=== PATIENT | male | born 1960 | race Caucasian/White ===

== ENCOUNTER → 2018-05-27 | Emergency (ER) | payer MEDICAID, OTHER | END | disposition left against medical advice (07) | LOC: ER 20:08 | DX: T14.8XXA Other injury of unspecified body region, initial encounter (principal); Z53.21 Procedure and treatment not carried out due to patient leaving prior to being seen by health care provider ==

== ENCOUNTER 2018-06-27 08:35 | Inpatient (IN) | payer OTHER ==
[~2018-06-27] VITALS: Ht 177.8 cm; Wt 118.3 kg
[2018-06-27] MEDS ORDERED: VANCOMYCIN 1GM/250ML 250 ML IV ONE (09:15)
[2018-06-27 09:39] LABS: Basophils # (auto) 0.1 uL; Basophils % (auto) 0.6 % (0.0-2.0); Eosinophils # (auto) 0.2 uL; Hematocrit 39.6 % (41.0-53.0); Hemoglobin 12.8 g/dL (13.5-17.5); Lymphocytes # (auto) 0.9 uL; Lymphocytes % (auto) 7.6 % (10.0-50.0); Mean Corpuscular Hemoglobin 27.8 pg (28.0-32.0); Mean Corpuscular Hgb Conc. 32.4 g/dL (32.0-36.0); Mean Corpuscular Volume 85.9 fL (80.0-100.0); Monocytes # (auto) 0.9 uL; Monocytes % (auto) 8.1 % (0.0-12.0); Neutrophils # (auto) 9.5 uL; Neutrophils % (auto) 81.7 % (37.0-80.0); Nucleated Red Blood Cells % 0.2 %; Platelet Count (auto) 380 10^3/uL (140-450); Red Blood Cells 4.61 10^6/uL (4.5-5.90); White Blood Cell 11.7 10^3/uL (4.4-10.8)
[2018-06-27 09:58] LABS: Alanine Aminotransferase 42 U/L (16-61); Albumin 2.4 g/dL (3.4-5.0); Anion Gap 9 (5-15); Aspartate Aminotransferase 37 U/L (15-37); BUN/Creatinine Ratio 18.8; Blood Urea Nitrogen 18 mg/dL (7-18); Calcium 8.3 mg/dL (8.5-10.1); Carbon Dioxide 26 mmol/L (21-32); Chloride 102 mmol/L (98-107); GFR African American 104 mL/min; GFR Non-African American 86 mL/min; Glucose 356 mg/dL (74-106); Magnesium 2.1 mg/dL (1.6-2.6); Potassium 4.8 mmol/L (3.5-5.1); Sodium 137 mmol/L (136-145)
[2018-06-27 10:03] LABS: Alkaline Phosphatase 195 U/L (45-117); Bilirubin, Total 0.2 mg/dL (0.2-1.0); Total Protein 7.5 g/dL (6.4-8.2)
[2018-06-27 10:23] LABS: INR 0.92 (0.9-1.15); Partial Thromboplastin Time 27.5 sec (23.78-33.04); Prothrombin Time 9.9 sec (9.27-12.13)
[2018-06-27] MEDS ORDERED: INSUINJ18 SC (12:35)
[2018-06-27] MEDS ORDERED: GABA300C10 PO (12:35)
[2018-06-27] MEDS ORDERED: INSU1INJ19 SC (12:35)
[2018-06-27] MEDS ORDERED: METF-372 PO (12:35)
[2018-06-27] MEDS ORDERED: LISI-646 PO (12:35)
[2018-06-27] MEDS ORDERED: AML5T PO (12:35)
[2018-06-27] MEDS ORDERED: MORPHINE SULFATE 4 MG/ML SYR/VIAL IV PRN ×2 (13:45→20:15)
[2018-06-27] MEDS ORDERED: NITROGLYCERIN 0.4 MG SL TAB SL PRN (13:45)
[2018-06-27] MEDS ORDERED: LACTULOSE 20Gm/30ML SOLN PO PRN (13:45)
[2018-06-27] MEDS ORDERED: TEMAZEPAM 15 MG CAP PO PRN (13:45)
[2018-06-27] MEDS ORDERED: DEXTROSE (50%) 50ML SYRG IV PRN (13:45)
[2018-06-27] MEDS ORDERED: FUROSEMIDE 40 MG/4 ML VIAL IV SCH (13:45)
[2018-06-27] MEDS ORDERED: ONDANSETRON HCL 4 MG/2 ML VIAL IV PRN (13:45)
[2018-06-27] MEDS ORDERED: ASPirin 81 mg TAB PO ONE (14:00)
[2018-06-27] MEDS ORDERED: CLINDAMYCIN 600MG IV 50 ML IV SCH (14:00)
[2018-06-27] MEDS ORDERED: amLODIPine BESYLATE 5 MG TAB PO ONE (14:00)
[2018-06-27] MEDS ORDERED: LISINOPRIL 10 MG TAB PO ONE (14:00)
[2018-06-27] MEDS: CARVEDILOL 3.125 MG TAB PO SCH ×2 (14:34→21:54)
[2018-06-27] MEDS: NITROGLYCERIN 0.2MG/HR TOPICAL PATCH TD SCH (14:35)
[2018-06-27] MEDS: cefTRIAXone 1GM/10ml IVPUSH 10 ML IV SCH (14:36)
[2018-06-27] MEDS: SODIUM CHLOR 0.9% PF (SALINE LOCK) 10ML VIAL/SYR IV SCH ×2 (14:36→21:54)
[2018-06-27] MEDS ORDERED: VANCOMYCIN PER PHARMACY 0 MG IV SCH (15:00)
[2018-06-27] MEDS ORDERED: AZITHROMYCIN 500MG/ 250ML 250 ML IV ONE (15:00)
[2018-06-27] MEDS ORDERED: IOHEXOL 350 MG/ML 100ML IJ ONE (15:35)
[2018-06-27 17:00] VITALS: BP 165/129
[2018-06-27] MEDS: SODIUM CHLORIDE 0.9% 1,000 ML IV SCH (17:19)
[2018-06-27] MEDS: ACCU-CHEK COMFORT CURVE STRIP VI SCH ×2 (17:59→19:55)
[2018-06-27] MEDS: InsuLIN REG 1unit/0.01ml Soln (100units/ml) SC SCH ×2 (18:00→20:08)
[2018-06-27] MEDS: VANCOMYCIN 1GM/250ML 250 ML IV SCH (18:00)
[2018-06-27] MEDS: KETOROLAC TROMETH 30 MG/ML 1ML VIAL IV PRN (20:08)
[2018-06-27] MEDS: INSULIN LANTUS (GLARGINE) 1 /0.01ml (100units/ml) SC SCH (21:54)
[2018-06-27 22:00] VITALS: BP 143/95
[2018-06-27] MEDS ORDERED: lamoTRIgine 100 MG TAB PO SCH (22:00)
[2018-06-27 23:05] VITALS: BP 143/95
[2018-06-28] MEDS: ACCU-CHEK COMFORT CURVE STRIP VI SCH ×6 (00:05→20:53)
[2018-06-28] MEDS: VANCOMYCIN 1GM/250ML 250 ML IV SCH ×3 (01:57→17:43)
[2018-06-28] MEDS: InsuLIN REG 1unit/0.01ml Soln (100units/ml) SC SCH ×6 (04:00→20:53)
[2018-06-28] MEDS: SODIUM CHLORIDE 0.9% 1,000 ML IV SCH ×2 (04:50→20:52)
[2018-06-28 05:00] VITALS: BP 141/77
[2018-06-28] MEDS: SODIUM CHLOR 0.9% PF (SALINE LOCK) 10ML VIAL/SYR IV SCH ×3 (05:43→20:52)
[2018-06-28] MEDS: INSULIN LANTUS (GLARGINE) 1 /0.01ml (100units/ml) SC SCH ×2 (05:55→20:53)
[2018-06-28] MEDS: GABAPENTIN 300 MG CAP PO SCH (05:59)
[2018-06-28 07:41] LABS: Basophils # (auto) 0 uL; Basophils % (auto) 0.5 % (0.0-2.0); Eosinophils # (auto) 0.3 uL; Eosinophils % (auto) 2.8 % (0.0-7.0); Hematocrit 35.3 % (41.0-53.0); Hemoglobin 11.5 g/dL (13.5-17.5); Lymphocytes # (auto) 0.9 uL; Lymphocytes % (auto) 9.5 % (10.0-50.0); Mean Corpuscular Hemoglobin 28.1 pg (28.0-32.0); Mean Corpuscular Hgb Conc. 32.7 g/dL (32.0-36.0); Mean Corpuscular Volume 85.9 fL (80.0-100.0); Monocytes # (auto) 0.9 uL; Monocytes % (auto) 9.2 % (0.0-12.0); Neutrophils # (auto) 7.3 uL; Nucleated Red Blood Cells % 0.1 %; Platelet Count (auto) 324 10^3/uL (140-450); Red Blood Cells 4.11 10^6/uL (4.5-5.90); Red Cell Distribution Width 13.4 % (11.8-14.3); White Blood Cell 9.3 10^3/uL (4.4-10.8)
[2018-06-28 08:13] LABS: BUN/Creatinine Ratio 24.7
[2018-06-28 08:30] VITALS: BP 150/91
[2018-06-28 08:44] LABS: Urine Bacteria NONE SEEN /hpf (None Seen); Urine Blood Negative /uL (Negative); Urine Budding Yeast OCCASIONAL /hpf (None Seen); Urine Specific Gravity 1.035 (1.001-1.035); Urine WBC 5 /hpf (0 - 3)
[2018-06-28 08:54] LABS: Alcohol, Urine < 3.0 mg/dL (0-5); Amphetamine Screen, Urine POSITIVE (NEGATIVE); Barbiturate Scree,Urine NEGATIVE (NEGATIVE); Benzodiazephine Screen, Urine NEGATIVE (NEGATIVE); Cannabinoid Screen, Urine NEGATIVE (NEGATIVE); Cocaine Screen, Urine NEGATIVE (NEGATIVE); Opiate Scree,Urine NEGATIVE (NEGATIVE); Phencyclidine Screen, Urine NEGATIVE (NEGATIVE)
[2018-06-28 09:00] VITALS: BP 150/92
[2018-06-28] MEDS: ENOXAPARIN SOD 40 MG/0.4 ML SYRINGE SC SCH (09:25)
[2018-06-28] MEDS: cefTRIAXone 1GM/10ml IVPUSH 10 ML IV SCH (09:25)
[2018-06-28] MEDS: ASPirin 81 mg TAB PO SCH (09:26)
[2018-06-28] MEDS: CARVEDILOL 3.125 MG TAB PO SCH ×2 (09:27→21:15)
[2018-06-28] MEDS: PANTOPRAZOLE 40 MG TAB PO SCH (09:27)
[2018-06-28] MEDS: NITROGLYCERIN 0.2MG/HR TOPICAL PATCH TD SCH (09:28)
[2018-06-28] MEDS ORDERED: amLODIPine BESYLATE 5 MG TAB PO SCH (10:00)
[2018-06-28] MEDS ORDERED: PATIENTS OWN MEDICATION (Lisinopril 1 TAB) PO SCH (10:00)
[2018-06-28] MEDS ORDERED: AZITHROMYCIN 500MG/ 250ML 250 ML IV SCH (10:00)
[2018-06-28] MEDS ORDERED: LISINOPRIL 10 MG TAB PO SCH (10:00)
[2018-06-28] MEDS ORDERED: POTASSIUM CHL 20 Meq TABLET PO SCH (10:00)
[2018-06-28] MEDS ORDERED: GABAPENTIN PO SCH (10:00)
[2018-06-28] MEDS ORDERED: LISINOPRIL 20 MG TAB PO ONE (12:15)
[2018-06-28 13:00] VITALS: BP 156/105
[2018-06-28] MEDS ORDERED: amLODIPine BESYLATE 5 MG TAB PO STA (13:31)
[2018-06-28] MEDS ORDERED: IOHEXOL 350 MG/ML 100ML IJ ONE (13:49)
[2018-06-28] MEDS ORDERED: DEXTROSE (50%) 50ML SYRG IV PRN (14:00)
[2018-06-28] MEDS: LORazepam 0.5 MG TAB PO PRN ×2 (14:33→20:30)
[2018-06-28 17:00] VITALS: BP 148/81
[2018-06-28] MEDS: ALBUTEROL SULF 2.5 MG/0.5ML(0.5%) NEB SOLN NEB PRN (19:22)
[2018-06-28 22:00] VITALS: BP 147/77
[2018-06-28] MEDS: KETOROLAC TROMETH 30 MG/ML 1ML VIAL IV PRN (22:30)
[2018-06-29] VITALS (7 sets, daily range): BP systolic 120–168; BP diastolic 78–96
[2018-06-29] MEDS: LORazepam 0.5 MG TAB PO PRN ×3 (02:30→17:53)
[2018-06-29] MEDS: VANCOMYCIN 1GM/250ML 250 ML IV SCH ×2 (02:37→10:10)
[2018-06-29] MEDS: SODIUM CHLOR 0.9% PF (SALINE LOCK) 10ML VIAL/SYR IV SCH ×3 (05:45→20:13)
[2018-06-29] MEDS: INSULIN LANTUS (GLARGINE) 1 /0.01ml (100units/ml) SC SCH ×2 (05:46→20:43)
[2018-06-29] MEDS: ACCU-CHEK COMFORT CURVE STRIP VI SCH ×4 (05:46→20:14)
[2018-06-29] MEDS: InsuLIN REG 1unit/0.01ml Soln (100units/ml) SC SCH ×4 (05:46→20:43)
[2018-06-29] MEDS: SODIUM CHLORIDE 0.9% 1,000 ML IV SCH ×2 (05:47→20:13)
[2018-06-29] MEDS: KETOROLAC TROMETH 30 MG/ML 1ML VIAL IV PRN ×2 (05:48→20:43)
[2018-06-29 06:05] LABS: Basophils # (auto) 0 uL; Basophils % (auto) 0.4 % (0.0-2.0); Eosinophils # (auto) 0.2 uL; Eosinophils % (auto) 3.5 % (0.0-7.0); Hematocrit 36.1 % (41.0-53.0); Lymphocytes # (auto) 0.8 uL; Lymphocytes % (auto) 11.7 % (10.0-50.0); Mean Corpuscular Hemoglobin 28.7 pg (28.0-32.0); Mean Corpuscular Hgb Conc. 33.3 g/dL (32.0-36.0); Mean Corpuscular Volume 86.2 fL (80.0-100.0); Monocytes # (auto) 0.6 uL; Neutrophils # (auto) 5.1 uL; Neutrophils % (auto) 75.4 % (37.0-80.0); Nucleated Red Blood Cells % 0.1 %; Platelet Count (auto) 345 10^3/uL (140-450); Red Blood Cells 4.18 10^6/uL (4.5-5.90); Red Cell Distribution Width 13.4 % (11.8-14.3); White Blood Cell 6.7 10^3/uL (4.4-10.8)
[2018-06-29 06:23] LABS: BUN/Creatinine Ratio 24.8; Calcium 8.2 mg/dL (8.5-10.1); Potassium 4.5 mmol/L (3.5-5.1)
[2018-06-29] MEDS: cefTRIAXone 1GM/10ml IVPUSH 10 ML IV SCH (10:09)
[2018-06-29] MEDS: NITROGLYCERIN 0.2MG/HR TOPICAL PATCH TD SCH (10:10)
[2018-06-29] MEDS: ENOXAPARIN SOD 40 MG/0.4 ML SYRINGE SC SCH (10:10)
[2018-06-29] MEDS: amLODIPine BESYLATE 5 MG TAB PO SCH (10:11)
[2018-06-29] MEDS: PANTOPRAZOLE 40 MG TAB PO SCH (10:11)
[2018-06-29] MEDS: GABAPENTIN 300 MG CAP PO SCH (10:12)
[2018-06-29] MEDS: CARVEDILOL 3.125 MG TAB PO SCH ×2 (10:12→20:13)
[2018-06-29] MEDS: ASPirin 81 mg TAB PO SCH (10:13)
[2018-06-29] MEDS: SILVER SULFADIAZINE 1 % TOPICAL CREAM 50GM TOP SCH ×2 (10:13→20:14)
[2018-06-29] MEDS: LISINOPRIL 20 MG TAB PO SCH (10:15)
[2018-06-29] MEDS: VANCOMYCIN 750 MG in D5W 5% 250 ML IV SCH (17:53)
[2018-06-29] MEDS: ALBUTEROL SULF 2.5 MG/0.5ML(0.5%) NEB SOLN NEB PRN (19:47)
[2018-06-29] MEDS: DAKINS QUARTER STR 0.125% (NaHypochlorite) 473 ML TOPICAL SOL TOP SCH ×2 (20:42→22:00)
[2018-06-29] MEDS ORDERED: HALOPERIDOL LACTATE 5 MG/ML INJ VIAL ONE (22:54)
[2018-06-29] MEDS ORDERED: LORazepam 2MG/ML-1ML VIAL ONE (22:55)
[2018-06-29] MEDS ORDERED: HALOPERIDOL LACTATE 5 MG/ML INJ VIAL IM ONE (23:00)
[2018-06-29] MEDS ORDERED: LORazepam 2MG/ML-1ML VIAL IV ONE (23:00)
[2018-06-29] MEDS ORDERED: diphenhdrAMINE HCL 50 MG/1 ML VL IM ONE (23:00)
[2018-06-30] VITALS (98 sets, daily range): BP systolic 66–205; BP diastolic 35–117
[2018-06-30] MEDS ORDERED: PROPOFOL 100 ML IV ONE (01:27)
[2018-06-30] MEDS ORDERED: MIDAZOLAM DRIP 50 mg/50mL 50 ML IV ONE (01:41)
[2018-06-30] MEDS ORDERED: NOREPINEPHRINE 8 MG/250ML KIT 250 ML IV ONE (02:13)
[2018-06-30] MEDS ORDERED: ETOMIDATE (2MG/ML) 20ML VIAL IV ONE (02:30)
[2018-06-30] MEDS ORDERED: SUCCINYLCHOLINE CHLORIDE 20 MG/ML 10ML VIAL IV ONE (03:00)
[2018-06-30] MEDS: NOREPINEPHRINE 8 MG/250ML KIT 250 ML IV SCH (03:00)
[2018-06-30] MEDS: VANCOMYCIN 750 MG in D5W 5% 250 ML IV SCH ×2 (03:02→09:29)
[2018-06-30 04:22] LABS: Basophils # (auto) 0 uL; Basophils % (auto) 0.4 % (0.0-2.0); Eosinophils # (auto) 0.2 uL; Eosinophils % (auto) 2.8 % (0.0-7.0); Hematocrit 34.8 % (41.0-53.0); Hemoglobin 11.4 g/dL (13.5-17.5); Lymphocytes # (auto) 0.4 uL; Lymphocytes % (auto) 6.3 % (10.0-50.0); Mean Corpuscular Hemoglobin 28.3 pg (28.0-32.0); Mean Corpuscular Hgb Conc. 32.7 g/dL (32.0-36.0); Mean Corpuscular Volume 86.7 fL (80.0-100.0); Monocytes # (auto) 0.5 uL; Monocytes % (auto) 7.1 % (0.0-12.0); Neutrophils # (auto) 5.9 uL; Neutrophils % (auto) 83.4 % (37.0-80.0); Nucleated Red Blood Cells % 0.1 %; Platelet Count (auto) 328 10^3/uL (140-450); Red Blood Cells 4.01 10^6/uL (4.5-5.90); Red Cell Distribution Width 13.8 % (11.8-14.3); White Blood Cell 7.1 10^3/uL (4.4-10.8)
[2018-06-30 04:33] LABS: BUN/Creatinine Ratio 24.4; Calcium 7.6 mg/dL (8.5-10.1); Potassium 4.7 mmol/L (3.5-5.1)
[2018-06-30] MEDS: SODIUM CHLOR 0.9% PF (SALINE LOCK) 10ML VIAL/SYR IV SCH ×3 (06:22→22:08)
[2018-06-30] MEDS: InsuLIN REG 1unit/0.01ml Soln (100units/ml) SC SCH ×4 (06:27→23:27)
[2018-06-30] MEDS: INSULIN LANTUS (GLARGINE) 1 /0.01ml (100units/ml) SC SCH ×2 (06:28→22:08)
[2018-06-30] MEDS: ACCU-CHEK COMFORT CURVE STRIP VI SCH ×3 (06:28→18:05)
[2018-06-30] MEDS: PROPOFOL 100 ML IV SCH ×2 (09:27→15:58)
[2018-06-30] MEDS: cefTRIAXone 1GM/10ml IVPUSH 10 ML IV SCH (09:28)
[2018-06-30] MEDS: amLODIPine BESYLATE 5 MG TAB PO SCH (10:00)
[2018-06-30] MEDS: LISINOPRIL 20 MG TAB PO SCH (10:00)
[2018-06-30] MEDS: CARVEDILOL 3.125 MG TAB PO SCH ×2 (10:00→22:00)
[2018-06-30] MEDS: NITROGLYCERIN 0.2MG/HR TOPICAL PATCH TD SCH (10:00)
[2018-06-30] MEDS: ASPirin 81 mg TAB PO SCH (10:24)
[2018-06-30] MEDS: GABAPENTIN 300 MG CAP PO SCH (10:26)
[2018-06-30] MEDS: ENOXAPARIN SOD 40 MG/0.4 ML SYRINGE SC SCH (10:27)
[2018-06-30] MEDS: PANTOPRAZOLE 40 MG TAB PO SCH (10:27)
[2018-06-30] MEDS: SODIUM CHLORIDE 0.9% 1,000 ML IV SCH ×2 (10:29→23:30)
[2018-06-30] MEDS ORDERED: DEXTROSE (50%) 50ML SYRG IV PRN (11:30)
[2018-06-30] MEDS ORDERED: PIPERACILLIN-TAZOB 3.375GM 100 ML IV SCH (12:00)
[2018-06-30] MEDS: DAKINS QUARTER STR 0.125% (NaHypochlorite) 473 ML TOPICAL SOL TOP SCH ×2 (14:35→22:00)
[2018-06-30] MEDS: SILVER SULFADIAZINE 1 % TOPICAL CREAM 50GM TOP SCH ×2 (14:36→22:00)
[2018-06-30] MEDS: CLINDAMYCIN 900MG IV 50 ML IV SCH ×2 (14:36→22:07)
[2018-06-30] MEDS: MIDAZOLAM DRIP 50 mg/50mL 50 ML IV SCH (21:47)
[2018-07-01] VITALS (107 sets, daily range): BP systolic 88–191; BP diastolic 39–105
[2018-07-01] MEDS: PROPOFOL 100 ML IV SCH ×6 (01:01→23:01)
[2018-07-01] MEDS: MIDAZOLAM DRIP 50 mg/50mL 50 ML IV SCH ×3 (01:01→23:01)
[2018-07-01] MEDS: NOREPINEPHRINE 8 MG/250ML KIT 250 ML IV SCH (02:04)
[2018-07-01] MEDS: ALBUTEROL SULF 2.5 MG/0.5ML(0.5%) NEB SOLN NEB PRN (02:51)
[2018-07-01 04:16] LABS: Basophils # (auto) 0 uL; Basophils % (auto) 0.3 % (0.0-2.0); Eosinophils # (auto) 0.2 uL; Eosinophils % (auto) 3.2 % (0.0-7.0); Hematocrit 37.2 % (41.0-53.0); Hemoglobin 12.2 g/dL (13.5-17.5); Lymphocytes # (auto) 0.8 uL; Lymphocytes % (auto) 11.6 % (10.0-50.0); Mean Corpuscular Hemoglobin 28.6 pg (28.0-32.0); Mean Corpuscular Hgb Conc. 32.9 g/dL (32.0-36.0); Mean Corpuscular Volume 87.2 fL (80.0-100.0); Monocytes # (auto) 0.7 uL; Monocytes % (auto) 9.9 % (0.0-12.0); Neutrophils # (auto) 5.4 uL; Nucleated Red Blood Cells % 0.1 %; Platelet Count (auto) 328 10^3/uL (140-450); Red Blood Cells 4.26 10^6/uL (4.5-5.90); White Blood Cell 7.2 10^3/uL (4.4-10.8)
[2018-07-01 04:30] LABS: BUN/Creatinine Ratio 27.2; Calcium 7.6 mg/dL (8.5-10.1); Potassium 4.3 mmol/L (3.5-5.1)
[2018-07-01] MEDS: CLINDAMYCIN 900MG IV 50 ML IV SCH ×3 (06:30→22:06)
[2018-07-01] MEDS: SODIUM CHLOR 0.9% PF (SALINE LOCK) 10ML VIAL/SYR IV SCH ×3 (06:31→22:24)
[2018-07-01] MEDS: InsuLIN REG 1unit/0.01ml Soln (100units/ml) SC SCH ×4 (06:31→23:48)
[2018-07-01] MEDS: INSULIN LANTUS (GLARGINE) 1 /0.01ml (100units/ml) SC SCH ×2 (06:31→22:00)
[2018-07-01] MEDS: ACCU-CHEK COMFORT CURVE STRIP VI SCH ×5 (06:31→23:48)
[2018-07-01] MEDS ORDERED: LEVETIRACETAM INJ 1,000 MG in D5W 5% 100 ML IV SCH (08:15)
[2018-07-01] MEDS: LISINOPRIL 20 MG TAB PO SCH (10:00)
[2018-07-01] MEDS: GABAPENTIN 300 MG CAP PO SCH (10:00)
[2018-07-01] MEDS: ASPirin 81 mg TAB PO SCH (10:16)
[2018-07-01] MEDS: CARVEDILOL 3.125 MG TAB PO SCH ×2 (10:17→22:00)
[2018-07-01] MEDS: PANTOPRAZOLE 40 MG TAB PO SCH (10:18)
[2018-07-01] MEDS: amLODIPine BESYLATE 5 MG TAB PO SCH (10:18)
[2018-07-01] MEDS: NITROGLYCERIN 0.2MG/HR TOPICAL PATCH TD SCH (10:19)
[2018-07-01] MEDS: ENOXAPARIN SOD 40 MG/0.4 ML SYRINGE SC SCH (10:19)
[2018-07-01] MEDS: DAKINS QUARTER STR 0.125% (NaHypochlorite) 473 ML TOPICAL SOL TOP SCH ×2 (12:42→22:23)
[2018-07-01] MEDS: SILVER SULFADIAZINE 1 % TOPICAL CREAM 50GM TOP SCH ×2 (12:42→22:23)
[2018-07-01] MEDS ORDERED: LORazepam 2MG/ML-1ML VIAL IV PRN (16:30)
[2018-07-01] MEDS ORDERED: Glucerna 1.2 Cal 1Liter BOTTLE GT SCH (19:30)
[2018-07-01] MEDS: SODIUM CHLORIDE 0.9% 1,000 ML IV SCH (22:57)
[2018-07-01] MEDS: LEVETIRACETAM INJ 1,000 MG in D5W 5% 100 ML IV SCH (23:01)
[2018-07-02] VITALS (104 sets, daily range): BP systolic 90–177; BP diastolic 45–104
[2018-07-02] MEDS: PROPOFOL 100 ML IV SCH ×4 (02:14→22:16)
[2018-07-02 04:04] LABS: Basophils # (auto) 0 uL; Basophils % (auto) 0.3 % (0.0-2.0); Eosinophils # (auto) 0.2 uL; Eosinophils % (auto) 2.8 % (0.0-7.0); Hematocrit 31.8 % (41.0-53.0); Hemoglobin 10.4 g/dL (13.5-17.5); Lymphocytes # (auto) 0.9 uL; Lymphocytes % (auto) 15.2 % (10.0-50.0); Mean Corpuscular Hemoglobin 28.6 pg (28.0-32.0); Mean Corpuscular Hgb Conc. 32.8 g/dL (32.0-36.0); Mean Corpuscular Volume 87.2 fL (80.0-100.0); Monocytes # (auto) 0.6 uL; Monocytes % (auto) 10.3 % (0.0-12.0); Neutrophils # (auto) 4.2 uL; Neutrophils % (auto) 71.4 % (37.0-80.0); Nucleated Red Blood Cells % 0.1 %; Platelet Count (auto) 305 10^3/uL (140-450); Red Blood Cells 3.65 10^6/uL (4.5-5.90); Red Cell Distribution Width 13.9 % (11.8-14.3); White Blood Cell 5.9 10^3/uL (4.4-10.8)
[2018-07-02 04:26] LABS: Calcium 7.4 mg/dL (8.5-10.1)
[2018-07-02] MEDS: InsuLIN REG 1unit/0.01ml Soln (100units/ml) SC SCH ×3 (06:00→18:08)
[2018-07-02] MEDS: SODIUM CHLOR 0.9% PF (SALINE LOCK) 10ML VIAL/SYR IV SCH ×4 (06:09→22:09)
[2018-07-02] MEDS: CLINDAMYCIN 900MG IV 50 ML IV SCH ×3 (06:09→22:18)
[2018-07-02] MEDS: ACCU-CHEK COMFORT CURVE STRIP VI SCH ×3 (06:09→18:08)
[2018-07-02] MEDS: INSULIN LANTUS (GLARGINE) 1 /0.01ml (100units/ml) SC SCH ×2 (06:10→22:00)
[2018-07-02] MEDS: SODIUM CHLORIDE 0.9% 1,000 ML IV SCH ×2 (06:10→15:03)
[2018-07-02] MEDS: MIDAZOLAM DRIP 50 mg/50mL 50 ML IV SCH ×3 (07:18→22:25)
[2018-07-02] MEDS: LEVETIRACETAM INJ 1,000 MG in D5W 5% 100 ML IV SCH (10:13)
[2018-07-02] MEDS: ASPirin 81 mg TAB PO SCH (10:23)
[2018-07-02] MEDS: GABAPENTIN 300 MG CAP PO SCH (10:25)
[2018-07-02] MEDS: CARVEDILOL 3.125 MG TAB PO SCH ×2 (10:25→22:00)
[2018-07-02] MEDS: amLODIPine BESYLATE 5 MG TAB PO SCH (10:26)
[2018-07-02] MEDS: PANTOPRAZOLE 40 MG TAB PO SCH (10:26)
[2018-07-02] MEDS: LISINOPRIL 20 MG TAB PO SCH (10:27)
[2018-07-02] MEDS: ENOXAPARIN SOD 40 MG/0.4 ML SYRINGE SC SCH (10:28)
[2018-07-02] MEDS: NITROGLYCERIN 0.2MG/HR TOPICAL PATCH TD SCH (10:28)
[2018-07-02 11:45] LABS: Prothrombin Time 10.7 sec (9.27-12.13)
[2018-07-02] MEDS: SILVER SULFADIAZINE 1 % TOPICAL CREAM 50GM TOP SCH ×2 (14:24→22:18)
[2018-07-02] MEDS: DAKINS QUARTER STR 0.125% (NaHypochlorite) 473 ML TOPICAL SOL TOP SCH ×2 (14:24→22:17)
[2018-07-02] MEDS ORDERED: LIDOCAINE 1% (LOCAL ANESTH.) PF 5ml SDV ID ONE (15:00)
[2018-07-02] MEDS ORDERED: LEVETIRACETAM INJ 1,000 MG in D5W 5% 100 ML IV ONE (16:30)
[2018-07-02] MEDS: LEVETIRACETAM INJ 750 MG in D5W 5% 100 ML IV SCH (22:27)
[2018-07-03] VITALS (106 sets, daily range): BP systolic 91–177; BP diastolic 47–120
[2018-07-03] MEDS: SODIUM CHLORIDE 0.9% 1,000 ML IV SCH ×2 (01:01→12:18)
[2018-07-03] MEDS: PROPOFOL 100 ML IV SCH ×5 (01:26→16:37)
[2018-07-03 04:10] LABS: Basophils # (auto) 0 uL; Basophils % (auto) 0.4 % (0.0-2.0); Eosinophils # (auto) 0.2 uL; Eosinophils % (auto) 3.3 % (0.0-7.0); Hematocrit 32.6 % (41.0-53.0); Hemoglobin 10.7 g/dL (13.5-17.5); Lymphocytes # (auto) 0.7 uL; Lymphocytes % (auto) 13.2 % (10.0-50.0); Mean Corpuscular Hemoglobin 28.6 pg (28.0-32.0); Mean Corpuscular Hgb Conc. 32.9 g/dL (32.0-36.0); Monocytes # (auto) 0.6 uL; Monocytes % (auto) 10.1 % (0.0-12.0); Neutrophils # (auto) 4.2 uL; Platelet Count (auto) 300 10^3/uL (140-450); Red Blood Cells 3.75 10^6/uL (4.5-5.90); Red Cell Distribution Width 14.3 % (11.8-14.3); White Blood Cell 5.7 10^3/uL (4.4-10.8)
[2018-07-03 04:35] LABS: Potassium 3.9 mmol/L (3.5-5.1)
[2018-07-03 04:39] LABS: Calcium 7.3 mg/dL (8.5-10.1)
[2018-07-03] MEDS: ACCU-CHEK COMFORT CURVE STRIP VI SCH ×4 (05:24→18:10)
[2018-07-03] MEDS: INSULIN LANTUS (GLARGINE) 1 /0.01ml (100units/ml) SC SCH ×2 (05:24→21:53)
[2018-07-03] MEDS: InsuLIN REG 1unit/0.01ml Soln (100units/ml) SC SCH ×4 (05:24→18:25)
[2018-07-03] MEDS: SODIUM CHLOR 0.9% PF (SALINE LOCK) 10ML VIAL/SYR IV SCH ×4 (05:24→21:52)
[2018-07-03] MEDS: CLINDAMYCIN 900MG IV 50 ML IV SCH ×3 (06:00→21:52)
[2018-07-03] MEDS: MIDAZOLAM DRIP 50 mg/50mL 50 ML IV SCH ×5 (06:39→20:14)
[2018-07-03] MEDS: LISINOPRIL 20 MG TAB PO SCH (10:07)
[2018-07-03] MEDS: ASPirin 81 mg TAB PO SCH (10:07)
[2018-07-03] MEDS: amLODIPine BESYLATE 5 MG TAB PO SCH (10:07)
[2018-07-03] MEDS: GABAPENTIN 300 MG CAP PO SCH (10:07)
[2018-07-03] MEDS: PANTOPRAZOLE 40 MG TAB PO SCH (10:08)
[2018-07-03] MEDS: ENOXAPARIN SOD 40 MG/0.4 ML SYRINGE SC SCH (10:08)
[2018-07-03] MEDS: CARVEDILOL 3.125 MG TAB PO SCH ×2 (10:08→21:53)
[2018-07-03] MEDS: NITROGLYCERIN 0.2MG/HR TOPICAL PATCH TD SCH (10:08)
[2018-07-03] MEDS: LEVETIRACETAM INJ 750 MG in D5W 5% 100 ML IV SCH ×2 (10:09→21:52)
[2018-07-03] MEDS: DAKINS QUARTER STR 0.125% (NaHypochlorite) 473 ML TOPICAL SOL TOP SCH (12:00)
[2018-07-03] MEDS: SILVER SULFADIAZINE 1 % TOPICAL CREAM 50GM TOP SCH (12:00)
[2018-07-03] MEDS: fentaNYL Drip 2500mCg/250mlNS 250 ML IV SCH (15:35)
[2018-07-03] MEDS: cefTRIAXone 1GM/10ml IVPUSH 10 ML IV SCH (16:31)
[2018-07-03] MEDS ORDERED: FUROSEMIDE 40 MG/4 ML VIAL IV STA (18:13)
[2018-07-03] MEDS: FUROSEMIDE 40 MG/4 ML VIAL IV SCH (19:00)
[2018-07-04] VITALS (104 sets, daily range): BP systolic 14–156; BP diastolic 47–104
[2018-07-04] MEDS: ACCU-CHEK COMFORT CURVE STRIP VI SCH ×5 (00:04→23:36)
[2018-07-04] MEDS: MIDAZOLAM DRIP 50 mg/50mL 50 ML IV SCH ×3 (00:10→10:58)
[2018-07-04] MEDS: InsuLIN REG 1unit/0.01ml Soln (100units/ml) SC SCH ×5 (00:10→23:36)
[2018-07-04] MEDS: SILVER SULFADIAZINE 1 % TOPICAL CREAM 50GM TOP SCH ×3 (00:10→21:31)
[2018-07-04] MEDS: DAKINS QUARTER STR 0.125% (NaHypochlorite) 473 ML TOPICAL SOL TOP SCH ×3 (00:11→21:30)
[2018-07-04 04:17] LABS: Basophils # (auto) 0 uL; Basophils % (auto) 0.5 % (0.0-2.0); Eosinophils # (auto) 0.2 uL; Hematocrit 33.4 % (41.0-53.0); Hemoglobin 10.9 g/dL (13.5-17.5); Lymphocytes # (auto) 0.7 uL; Lymphocytes % (auto) 8.5 % (10.0-50.0); Mean Corpuscular Hemoglobin 28.5 pg (28.0-32.0); Mean Corpuscular Hgb Conc. 32.7 g/dL (32.0-36.0); Mean Corpuscular Volume 87.1 fL (80.0-100.0); Monocytes # (auto) 0.7 uL; Monocytes % (auto) 8.5 % (0.0-12.0); Neutrophils # (auto) 6.6 uL; Neutrophils % (auto) 80.5 % (37.0-80.0); Platelet Count (auto) 362 10^3/uL (140-450); Red Blood Cells 3.84 10^6/uL (4.5-5.90); Red Cell Distribution Width 13.8 % (11.8-14.3); White Blood Cell 8.2 10^3/uL (4.4-10.8)
[2018-07-04 04:31] LABS: Calcium 7.7 mg/dL (8.5-10.1); Potassium 4.2 mmol/L (3.5-5.1)
[2018-07-04 04:32] LABS: BUN/Creatinine Ratio 21.9
[2018-07-04] MEDS: SODIUM CHLORIDE 0.9% 1,000 ML IV SCH ×2 (04:41→18:45)
[2018-07-04] MEDS: PROPOFOL 100 ML IV SCH ×2 (05:08→10:07)
[2018-07-04] MEDS: FUROSEMIDE 40 MG/4 ML VIAL IV SCH ×2 (05:55→18:14)
[2018-07-04] MEDS: CLINDAMYCIN 900MG IV 50 ML IV SCH ×3 (05:55→21:28)
[2018-07-04] MEDS: INSULIN LANTUS (GLARGINE) 1 /0.01ml (100units/ml) SC SCH ×2 (06:30→21:29)
[2018-07-04] MEDS: cefTRIAXone 1GM/10ml IVPUSH 10 ML IV SCH (09:33)
[2018-07-04] MEDS: LISINOPRIL 20 MG TAB PO SCH (09:42)
[2018-07-04] MEDS: CARVEDILOL 3.125 MG TAB PO SCH ×2 (09:47→21:28)
[2018-07-04] MEDS: ASPirin 81 mg TAB PO SCH (09:50)
[2018-07-04] MEDS: amLODIPine BESYLATE 5 MG TAB PO SCH (10:00)
[2018-07-04] MEDS: ENOXAPARIN SOD 40 MG/0.4 ML SYRINGE SC SCH (10:05)
[2018-07-04] MEDS: GABAPENTIN 300 MG CAP PO SCH (10:15)
[2018-07-04] MEDS: LEVETIRACETAM INJ 750 MG in D5W 5% 100 ML IV SCH ×2 (10:16→21:38)
[2018-07-04] MEDS: NITROGLYCERIN 0.2MG/HR TOPICAL PATCH TD SCH (10:16)
[2018-07-04] MEDS: SODIUM CHLOR 0.9% PF (SALINE LOCK) 10ML VIAL/SYR IV SCH ×2 (10:17→21:30)
[2018-07-04] MEDS: OMEPRAZOLE 20MG/10ML ORAL SUSP GT SCH (10:57)
[2018-07-04] MEDS ORDERED: FUROSEMIDE 20 MG/2 ML VIAL ONE (18:08)
[2018-07-04] MEDS: fentaNYL Drip 2500mCg/250mlNS 250 ML IV SCH (18:11)
[2018-07-05] VITALS (107 sets, daily range): BP systolic 96–168; BP diastolic 44–114
[2018-07-05 03:17] LABS: Basophils # (auto) 0 uL; Basophils % (auto) 0.6 % (0.0-2.0); Eosinophils # (auto) 0.2 uL; Hematocrit 32.9 % (41.0-53.0); Hemoglobin 10.6 g/dL (13.5-17.5); Lymphocytes % (auto) 12.5 % (10.0-50.0); Mean Corpuscular Hemoglobin 27.7 pg (28.0-32.0); Mean Corpuscular Hgb Conc. 32.3 g/dL (32.0-36.0); Mean Corpuscular Volume 85.8 fL (80.0-100.0); Monocytes # (auto) 0.9 uL; Monocytes % (auto) 11.2 % (0.0-12.0); Neutrophils # (auto) 5.8 uL; Neutrophils % (auto) 73.7 % (37.0-80.0); Platelet Count (auto) 369 10^3/uL (140-450); Red Blood Cells 3.83 10^6/uL (4.5-5.90); Red Cell Distribution Width 14.3 % (11.8-14.3); White Blood Cell 7.8 10^3/uL (4.4-10.8)
[2018-07-05 03:33] LABS: BUN/Creatinine Ratio 25.3; Calcium 7.7 mg/dL (8.5-10.1)
[2018-07-05] MEDS: INSULIN LANTUS (GLARGINE) 1 /0.01ml (100units/ml) SC SCH (05:40)
[2018-07-05] MEDS: ACCU-CHEK COMFORT CURVE STRIP VI SCH ×3 (05:40→17:56)
[2018-07-05] MEDS: FUROSEMIDE 40 MG/4 ML VIAL IV SCH ×2 (05:40→17:55)
[2018-07-05] MEDS: CLINDAMYCIN 900MG IV 50 ML IV SCH ×3 (05:40→21:55)
[2018-07-05] MEDS: InsuLIN REG 1unit/0.01ml Soln (100units/ml) SC SCH ×3 (05:41→17:56)
[2018-07-05] MEDS: DAKINS QUARTER STR 0.125% (NaHypochlorite) 473 ML TOPICAL SOL TOP SCH ×3 (08:00→17:55)
[2018-07-05] MEDS: PROPOFOL 100 ML IV SCH ×3 (08:00→16:00)
[2018-07-05] MEDS: ASPirin 81 mg TAB PO SCH (10:31)
[2018-07-05] MEDS: OMEPRAZOLE 20MG/10ML ORAL SUSP GT SCH (10:32)
[2018-07-05] MEDS: cefTRIAXone 1GM/10ml IVPUSH 10 ML IV SCH (10:32)
[2018-07-05] MEDS: SODIUM CHLOR 0.9% PF (SALINE LOCK) 10ML VIAL/SYR IV SCH ×2 (10:32→22:00)
[2018-07-05] MEDS: GABAPENTIN 300 MG CAP PO SCH (10:34)
[2018-07-05] MEDS: LEVETIRACETAM INJ 750 MG in D5W 5% 100 ML IV SCH ×2 (10:43→21:58)
[2018-07-05] MEDS: CARVEDILOL 3.125 MG TAB PO SCH ×2 (11:10→21:56)
[2018-07-05] MEDS: LISINOPRIL 20 MG TAB PO SCH (11:11)
[2018-07-05] MEDS: amLODIPine BESYLATE 5 MG TAB PO SCH (11:11)
[2018-07-05] MEDS: ENOXAPARIN SOD 40 MG/0.4 ML SYRINGE SC SCH (11:12)
[2018-07-05] MEDS: NITROGLYCERIN 0.2MG/HR TOPICAL PATCH TD SCH (11:13)
[2018-07-05] MEDS: HALOPERIDOL 5 MG TAB PO SCH ×2 (13:54→21:57)
[2018-07-05] MEDS: SILVER SULFADIAZINE 1 % TOPICAL CREAM 50GM TOP SCH ×2 (14:40→17:55)
[2018-07-05] MEDS: fentaNYL Drip 2500mCg/250mlNS 250 ML IV SCH (15:05)
[2018-07-05] MEDS: SODIUM CHLORIDE 0.9% 1,000 ML IV SCH (18:45)
[2018-07-06] VITALS (105 sets, daily range): BP systolic 82–169; BP diastolic 34–103
[2018-07-06] MEDS: InsuLIN REG 1unit/0.01ml Soln (100units/ml) SC SCH ×4 (00:30→18:36)
[2018-07-06] MEDS: hydrALAZINE HCL 20 MG/ML VL IV PRN (03:38)
[2018-07-06 04:13] LABS: Basophils # (auto) 0.1 uL; Basophils % (auto) 1.3 % (0.0-2.0); Eosinophils # (auto) 0.2 uL; Eosinophils % (auto) 2.6 % (0.0-7.0); Hematocrit 32.6 % (41.0-53.0); Hemoglobin 10.5 g/dL (13.5-17.5); Lymphocytes # (auto) 0.8 uL; Lymphocytes % (auto) 10.2 % (10.0-50.0); Mean Corpuscular Hemoglobin 28.1 pg (28.0-32.0); Mean Corpuscular Hgb Conc. 32.3 g/dL (32.0-36.0); Mean Corpuscular Volume 86.8 fL (80.0-100.0); Monocytes # (auto) 0.8 uL; Monocytes % (auto) 11.1 % (0.0-12.0); Neutrophils # (auto) 5.6 uL; Neutrophils % (auto) 74.8 % (37.0-80.0); Platelet Count (auto) 358 10^3/uL (140-450); Red Blood Cells 3.75 10^6/uL (4.5-5.90); White Blood Cell 7.4 10^3/uL (4.4-10.8)
[2018-07-06 04:31] LABS: Calcium 7.8 mg/dL (8.5-10.1)
[2018-07-06 04:33] LABS: BUN/Creatinine Ratio 34.9
[2018-07-06] MEDS: DAKINS QUARTER STR 0.125% (NaHypochlorite) 473 ML TOPICAL SOL TOP SCH ×3 (05:29→22:30)
[2018-07-06] MEDS: SILVER SULFADIAZINE 1 % TOPICAL CREAM 50GM TOP SCH ×3 (05:29→22:30)
[2018-07-06] MEDS: CLINDAMYCIN 900MG IV 50 ML IV SCH ×3 (06:29→22:20)
[2018-07-06] MEDS: FUROSEMIDE 40 MG/4 ML VIAL IV SCH ×2 (06:29→18:29)
[2018-07-06] MEDS: ACCU-CHEK COMFORT CURVE STRIP VI SCH ×4 (06:29→18:35)
[2018-07-06] MEDS: INSULIN LANTUS (GLARGINE) 1 /0.01ml (100units/ml) SC SCH ×2 (06:35→22:49)
[2018-07-06] MEDS: PROPOFOL 100 ML IV SCH ×5 (07:00→18:25)
[2018-07-06] MEDS: MIDAZOLAM DRIP 50 mg/50mL 50 ML IV SCH (07:24)
[2018-07-06] MEDS: cefTRIAXone 1GM/10ml IVPUSH 10 ML IV SCH (09:21)
[2018-07-06] MEDS ORDERED: SODIUM CHLORIDE LOCK 40 ML ONE (09:35)
[2018-07-06] MEDS ORDERED: LIDOCAINE 2% (LOCAL ANESTH.) PF 5ml SDV ONE (09:35)
[2018-07-06] MEDS ORDERED: EPINEPHrine HCL 1 MG/1 ML AMP ONE (09:35)
[2018-07-06] MEDS ORDERED: GLYCOPYRROLATE 0.2 MG/ML 1ML VIAL ONE (09:36)
[2018-07-06] MEDS ORDERED: MIDAZOLAM HCL 5 MG/ML-1ML VIAL ONE (09:36)
[2018-07-06] MEDS ORDERED: LIDOCAINE 2% JELLY 11ml (GLYDO) ONE (09:36)
[2018-07-06] MEDS ORDERED: fentaNYL CITRATE 100 MCG/2 ML VL ONE (09:36)
[2018-07-06] MEDS ORDERED: NALOXONE HCL 0.4 MG/ML VIAL ONE (09:37)
[2018-07-06] MEDS ORDERED: FLUMAZENIL 0.1 MG/ML INJ 10ML MDV IV ONE (09:37)
[2018-07-06] MEDS: LEVETIRACETAM INJ 750 MG in D5W 5% 100 ML IV SCH ×2 (09:39→22:20)
[2018-07-06] MEDS: FLUCONAZOLE 200MG/100ML 100 ML IV SCH (12:45)
[2018-07-06] MEDS: NITROGLYCERIN 0.2MG/HR TOPICAL PATCH TD SCH (12:46)
[2018-07-06] MEDS: amLODIPine BESYLATE 5 MG TAB PO SCH (12:48)
[2018-07-06] MEDS: CARVEDILOL 3.125 MG TAB PO SCH ×2 (12:49→22:00)
[2018-07-06] MEDS: GABAPENTIN 300 MG CAP PO SCH (12:49)
[2018-07-06] MEDS: ASPirin 81 mg TAB PO SCH (12:49)
[2018-07-06] MEDS: ENOXAPARIN SOD 40 MG/0.4 ML SYRINGE SC SCH (12:51)
[2018-07-06] MEDS: LISINOPRIL 20 MG TAB PO SCH (12:51)
[2018-07-06] MEDS: OMEPRAZOLE 20MG/10ML ORAL SUSP GT SCH (12:52)
[2018-07-06] MEDS: SODIUM CHLOR 0.9% PF (SALINE LOCK) 10ML VIAL/SYR IV SCH ×2 (12:55→22:24)
[2018-07-06] MEDS: HALOPERIDOL 5 MG TAB PO SCH ×2 (13:20→22:24)
[2018-07-06] MEDS: fentaNYL Drip 2500mCg/250mlNS 250 ML IV SCH (15:05)
[2018-07-06] MEDS: SODIUM CHLORIDE 0.9% 1,000 ML IV SCH (18:45)
[2018-07-07] VITALS (61 sets, daily range): BP systolic 102–175; BP diastolic 52–112
[2018-07-07] MEDS: ACCU-CHEK COMFORT CURVE STRIP VI SCH ×4 (00:15→18:00)
[2018-07-07 03:55] LABS: Basophils # (auto) 0.1 uL; Basophils % (auto) 1.1 % (0.0-2.0); Eosinophils # (auto) 0.3 uL; Eosinophils % (auto) 4.4 % (0.0-7.0); Hematocrit 30.2 % (41.0-53.0); Lymphocytes # (auto) 0.7 uL; Lymphocytes % (auto) 11.3 % (10.0-50.0); Mean Corpuscular Hemoglobin 31.3 pg (28.0-32.0); Mean Corpuscular Hgb Conc. 36.4 g/dL (32.0-36.0); Mean Corpuscular Volume 86.2 fL (80.0-100.0); Monocytes # (auto) 0.7 uL; Monocytes % (auto) 10.7 % (0.0-12.0); Neutrophils # (auto) 4.7 uL; Neutrophils % (auto) 72.5 % (37.0-80.0); Platelet Count (auto) 363 10^3/uL (140-450); White Blood Cell 6.4 10^3/uL (4.4-10.8)
[2018-07-07 04:13] LABS: BUN/Creatinine Ratio 32.3; Calcium 6.6 mg/dL (8.5-10.1); Potassium 3.7 mmol/L (3.5-5.1)
[2018-07-07] MEDS: FUROSEMIDE 40 MG/4 ML VIAL IV SCH ×2 (06:12→18:44)
[2018-07-07] MEDS: CLINDAMYCIN 900MG IV 50 ML IV SCH ×3 (06:12→22:30)
[2018-07-07] MEDS: INSULIN LANTUS (GLARGINE) 1 /0.01ml (100units/ml) SC SCH ×2 (06:17→22:00)
[2018-07-07] MEDS: InsuLIN REG 1unit/0.01ml Soln (100units/ml) SC SCH ×4 (06:17→18:00)
[2018-07-07] MEDS: MIDAZOLAM DRIP 50 mg/50mL 50 ML IV SCH (07:24)
[2018-07-07] MEDS: SODIUM CHLOR 0.9% PF (SALINE LOCK) 10ML VIAL/SYR IV SCH ×2 (10:00→22:00)
[2018-07-07] MEDS: SILVER SULFADIAZINE 1 % TOPICAL CREAM 50GM TOP SCH ×2 (10:00→22:00)
[2018-07-07] MEDS: DAKINS QUARTER STR 0.125% (NaHypochlorite) 473 ML TOPICAL SOL TOP SCH ×2 (10:00→22:00)
[2018-07-07] MEDS: cefTRIAXone 1GM/10ml IVPUSH 10 ML IV SCH (10:07)
[2018-07-07] MEDS: OMEPRAZOLE 20MG/10ML ORAL SUSP GT SCH (10:10)
[2018-07-07] MEDS: FLUCONAZOLE 200MG/100ML 100 ML IV SCH (10:10)
[2018-07-07] MEDS: ENOXAPARIN SOD 40 MG/0.4 ML SYRINGE SC SCH (10:11)
[2018-07-07] MEDS: NITROGLYCERIN 0.2MG/HR TOPICAL PATCH TD SCH (10:12)
[2018-07-07] MEDS: ASPirin 81 mg TAB PO SCH (10:13)
[2018-07-07] MEDS: CARVEDILOL 3.125 MG TAB PO SCH ×2 (10:13→22:00)
[2018-07-07] MEDS: LISINOPRIL 20 MG TAB PO SCH (10:14)
[2018-07-07] MEDS: HALOPERIDOL 5 MG TAB PO SCH ×2 (10:15→22:00)
[2018-07-07] MEDS: amLODIPine BESYLATE 5 MG TAB PO SCH (10:15)
[2018-07-07] MEDS: GABAPENTIN 300 MG CAP PO SCH (10:15)
[2018-07-07 13:35] LABS: Ferritin 208.9 ng/mL (10-322)
[2018-07-07 13:37] LABS: Folate (Folic Acid) 13.51 ng/mL (5.38-24)
[2018-07-07] MEDS: fentaNYL Drip 2500mCg/250mlNS 250 ML IV SCH (15:05)
[2018-07-07] MEDS: hydrALAZINE HCL 20 MG/ML VL IV PRN (15:36)
[2018-07-07] MEDS: LEVETIRACETAM INJ 750 MG in D5W 5% 100 ML IV SCH ×2 (16:53→23:00)
[2018-07-07 18:10] LABS: % Iron Saturation 11.8 % (20-55)
[2018-07-08] VITALS (68 sets, daily range): BP systolic 121–178; BP diastolic 49–97
[2018-07-08] MEDS: CLINDAMYCIN 900MG IV 50 ML IV SCH ×3 (06:00→22:19)
[2018-07-08] MEDS: FUROSEMIDE 40 MG/4 ML VIAL IV SCH ×2 (06:00→17:52)
[2018-07-08] MEDS: InsuLIN REG 1unit/0.01ml Soln (100units/ml) SC SCH ×4 (06:00→18:00)
[2018-07-08] MEDS: ACCU-CHEK COMFORT CURVE STRIP VI SCH ×4 (06:00→18:25)
[2018-07-08 06:04] LABS: Basophils # (auto) 0.1 uL; Basophils % (auto) 1.5 % (0.0-2.0); Eosinophils # (auto) 0.4 uL; Eosinophils % (auto) 6.8 % (0.0-7.0); Hematocrit 33.6 % (41.0-53.0); Hemoglobin 11.1 g/dL (13.5-17.5); Lymphocytes # (auto) 0.8 uL; Lymphocytes % (auto) 12.9 % (10.0-50.0); Mean Corpuscular Hemoglobin 28.4 pg (28.0-32.0); Mean Corpuscular Hgb Conc. 33.1 g/dL (32.0-36.0); Mean Corpuscular Volume 85.9 fL (80.0-100.0); Monocytes # (auto) 0.9 uL; Monocytes % (auto) 14.2 % (0.0-12.0); Neutrophils % (auto) 64.6 % (37.0-80.0); Nucleated Red Blood Cells % 0.1 %; Platelet Count (auto) 387 10^3/uL (140-450); Red Blood Cells 3.91 10^6/uL (4.5-5.90); Red Cell Distribution Width 13.7 % (11.8-14.3); White Blood Cell 6.2 10^3/uL (4.4-10.8)
[2018-07-08 06:27] LABS: Potassium 3.4 mmol/L (3.5-5.1)
[2018-07-08 06:33] LABS: BUN/Creatinine Ratio 25.7; Calcium 8.1 mg/dL (8.5-10.1)
[2018-07-08] MEDS: INSULIN LANTUS (GLARGINE) 1 /0.01ml (100units/ml) SC SCH ×2 (06:39→22:20)
[2018-07-08] MEDS: SILVER SULFADIAZINE 1 % TOPICAL CREAM 50GM TOP SCH ×2 (10:00→22:21)
[2018-07-08] MEDS: DAKINS QUARTER STR 0.125% (NaHypochlorite) 473 ML TOPICAL SOL TOP SCH ×2 (10:00→22:21)
[2018-07-08] MEDS: ASPirin 81 mg TAB PO SCH (10:34)
[2018-07-08] MEDS: amLODIPine BESYLATE 5 MG TAB PO SCH (10:34)
[2018-07-08] MEDS: LISINOPRIL 20 MG TAB PO SCH (10:35)
[2018-07-08] MEDS: GABAPENTIN 300 MG CAP PO SCH (10:35)
[2018-07-08] MEDS: CARVEDILOL 3.125 MG TAB PO SCH (10:37)
[2018-07-08] MEDS ORDERED: POTASSIUM CHL 10 Meq TABLET PO ONE (10:45)
[2018-07-08] MEDS: FLUCONAZOLE 200MG/100ML 100 ML IV SCH (10:53)
[2018-07-08] MEDS: cefTRIAXone 1GM/50ML D5W 50 ML IV SCH (10:53)
[2018-07-08] MEDS ORDERED: IOHEXOL 350 MG/ML 100ML IJ ONE (10:55)
[2018-07-08] MEDS ORDERED: HALOPERIDOL 5 MG TAB PO PRN (11:00)
[2018-07-08] MEDS: PANTOPRAZOLE 40 MG TAB PO SCH (11:19)
[2018-07-08] MEDS: LEVETIRACETAM 500 MG TAB PO SCH ×2 (11:19→22:19)
[2018-07-08] MEDS: METOPROLOL TARTRATE 25 MG TAB PO SCH ×2 (11:20→22:20)
[2018-07-08] MEDS: SODIUM CHLOR 0.9% PF (SALINE LOCK) 10ML VIAL/SYR IV SCH ×2 (11:21→22:19)
[2018-07-08] MEDS ORDERED: LORazepam 2MG/ML-1ML VIAL IV PRN (14:15)
[2018-07-08] MEDS: ALBUTEROL SULF 2.5 MG/0.5ML(0.5%) NEB SOLN NEB SCH (18:44)
[2018-07-08] MEDS: IPRATROPIUM BROM 0.5 MG/2.5ML INH SOL NEB SCH (18:44)
[2018-07-08] MEDS: LORazepam 0.5 MG TAB PO PRN (20:34)
[2018-07-08] MEDS: POTASSIUM CHL 10 Meq TABLET PO SCH (23:00)
[2018-07-09] VITALS (42 sets, daily range): BP systolic 132–185; BP diastolic 75–135
[2018-07-09] MEDS: IPRATROPIUM BROM 0.5 MG/2.5ML INH SOL NEB SCH ×4 (00:27→19:09)
[2018-07-09] MEDS: ALBUTEROL SULF 2.5 MG/0.5ML(0.5%) NEB SOLN NEB SCH ×4 (00:27→19:09)
[2018-07-09] MEDS: ACCU-CHEK COMFORT CURVE STRIP VI SCH ×4 (00:33→17:55)
[2018-07-09] MEDS: InsuLIN REG 1unit/0.01ml Soln (100units/ml) SC SCH ×4 (00:34→17:55)
[2018-07-09] MEDS ORDERED: diphenhdrAMINE HCL 25 MG CAP PO ONE ×2 (01:45→21:30)
[2018-07-09] MEDS: LABETALOL HCL 5 MG/ML ML 20ML VIAL IV PRN ×4 (02:42→17:57)
[2018-07-09] MEDS: LORazepam 0.5 MG TAB PO PRN ×2 (03:33→14:49)
[2018-07-09] MEDS: CLINDAMYCIN 900MG IV 50 ML IV SCH ×3 (06:34→22:48)
[2018-07-09] MEDS: INSULIN LANTUS (GLARGINE) 1 /0.01ml (100units/ml) SC SCH ×2 (06:35→22:00)
[2018-07-09] MEDS: FUROSEMIDE 40 MG/4 ML VIAL IV SCH ×2 (06:35→18:01)
[2018-07-09] MEDS: cefTRIAXone 1GM/50ML D5W 50 ML IV SCH (08:28)
[2018-07-09] MEDS: FLUCONAZOLE 200MG/100ML 100 ML IV SCH (08:38)
[2018-07-09] MEDS: PANTOPRAZOLE 40 MG TAB PO SCH (08:39)
[2018-07-09] MEDS: LISINOPRIL 20 MG TAB PO SCH (08:39)
[2018-07-09] MEDS: amLODIPine BESYLATE 5 MG TAB PO SCH (08:40)
[2018-07-09] MEDS: GABAPENTIN 300 MG CAP PO SCH (08:41)
[2018-07-09] MEDS: POTASSIUM CHL 10 Meq TABLET PO SCH ×2 (08:41→21:34)
[2018-07-09] MEDS: METOPROLOL TARTRATE 25 MG TAB PO SCH ×2 (08:42→21:36)
[2018-07-09] MEDS: SODIUM CHLOR 0.9% PF (SALINE LOCK) 10ML VIAL/SYR IV SCH ×2 (08:43→21:40)
[2018-07-09] MEDS: LEVETIRACETAM 500 MG TAB PO SCH (08:55)
[2018-07-09] MEDS: ASPirin 81 mg TAB PO SCH (10:00)
[2018-07-09] MEDS: SILVER SULFADIAZINE 1 % TOPICAL CREAM 50GM TOP SCH ×2 (10:00→22:00)
[2018-07-09] MEDS: DAKINS QUARTER STR 0.125% (NaHypochlorite) 473 ML TOPICAL SOL TOP SCH (10:00)
[2018-07-09 10:27] LABS: Basophils # (auto) 0 uL; Basophils % (auto) 0.2 % (0.0-2.0); Eosinophils # (auto) 0.6 uL; Eosinophils % (auto) 7.3 % (0.0-7.0); Hematocrit 35.8 % (41.0-53.0); Hemoglobin 11.6 g/dL (13.5-17.5); Lymphocytes % (auto) 11.9 % (10.0-50.0); Mean Corpuscular Hemoglobin 27.4 pg (28.0-32.0); Mean Corpuscular Hgb Conc. 32.2 g/dL (32.0-36.0); Mean Corpuscular Volume 84.9 fL (80.0-100.0); Monocytes % (auto) 12.3 % (0.0-12.0); Neutrophils # (auto) 5.5 uL; Neutrophils % (auto) 68.3 % (37.0-80.0); Platelet Count (auto) 388 10^3/uL (140-450); Red Blood Cells 4.22 10^6/uL (4.5-5.90); Red Cell Distribution Width 13.7 % (11.8-14.3); White Blood Cell 8.1 10^3/uL (4.4-10.8)
[2018-07-09 10:32] LABS: BUN/Creatinine Ratio 24.2; Calcium 8.7 mg/dL (8.5-10.1); Potassium 3.3 mmol/L (3.5-5.1)
[2018-07-09] MEDS ORDERED: POTASSIUM CHL 20 Meq TABLET PO ONE (12:15)
[2018-07-09] MEDS ORDERED: diphenhdrAMINE HCL 25 MG CAP PO PRN (21:30)
[2018-07-09] MEDS: TEMAZEPAM 15 MG CAP PO PRN (21:34)
[2018-07-10] VITALS: BP_SYST 117; BP_SYST 123; BP_DIAS 72; BP_DIAS 73
[2018-07-10] MEDS: IPRATROPIUM BROM 0.5 MG/2.5ML INH SOL NEB SCH ×5 (00:34→23:56)
[2018-07-10] MEDS: ALBUTEROL SULF 2.5 MG/0.5ML(0.5%) NEB SOLN NEB SCH ×5 (00:34→23:56)
[2018-07-10 05:01] LABS: Basophils # (auto) 0.1 uL; Basophils % (auto) 1.1 % (0.0-2.0); Eosinophils # (auto) 0.7 uL; Eosinophils % (auto) 8.1 % (0.0-7.0); Hematocrit 34.2 % (41.0-53.0); Hemoglobin 11.2 g/dL (13.5-17.5); Lymphocytes # (auto) 1.3 uL; Mean Corpuscular Hgb Conc. 32.7 g/dL (32.0-36.0); Mean Corpuscular Volume 85.7 fL (80.0-100.0); Monocytes # (auto) 1.1 uL; Monocytes % (auto) 13.4 % (0.0-12.0); Neutrophils # (auto) 5.1 uL; Neutrophils % (auto) 61.4 % (37.0-80.0); Platelet Count (auto) 349 10^3/uL (140-450); Red Blood Cells 3.99 10^6/uL (4.5-5.90); Red Cell Distribution Width 13.6 % (11.8-14.3); White Blood Cell 8.3 10^3/uL (4.4-10.8)
[2018-07-10 05:21] LABS: BUN/Creatinine Ratio 19.4; Calcium 8.6 mg/dL (8.5-10.1); Potassium 3.6 mmol/L (3.5-5.1)
[2018-07-10] MEDS: ACCU-CHEK COMFORT CURVE STRIP VI SCH ×4 (05:45→17:23)
[2018-07-10] MEDS: FUROSEMIDE 40 MG/4 ML VIAL IV SCH ×2 (05:45→17:43)
[2018-07-10] MEDS: CLINDAMYCIN 900MG IV 50 ML IV SCH ×3 (05:45→22:32)
[2018-07-10] MEDS: InsuLIN REG 1unit/0.01ml Soln (100units/ml) SC SCH ×4 (05:45→17:23)
[2018-07-10] MEDS: INSULIN LANTUS (GLARGINE) 1 /0.01ml (100units/ml) SC SCH ×2 (05:47→22:32)
[2018-07-10] MEDS: LABETALOL HCL 5 MG/ML ML 20ML VIAL IV PRN (06:26)
[2018-07-10 08:00] VITALS: BP 146/106
[2018-07-10] MEDS: cefTRIAXone 1GM/50ML D5W 50 ML IV SCH (09:54)
[2018-07-10] MEDS: PANTOPRAZOLE 40 MG TAB PO SCH (09:55)
[2018-07-10] MEDS: METOPROLOL TARTRATE 25 MG TAB PO SCH ×2 (09:55→22:30)
[2018-07-10] MEDS: FLUCONAZOLE 200MG/100ML 100 ML IV SCH (09:55)
[2018-07-10] MEDS: amLODIPine BESYLATE 5 MG TAB PO SCH (09:57)
[2018-07-10] MEDS: LISINOPRIL 20 MG TAB PO SCH (09:57)
[2018-07-10] MEDS: POTASSIUM CHL 10 Meq TABLET PO SCH ×2 (09:57→22:30)
[2018-07-10] MEDS: GABAPENTIN 300 MG CAP PO SCH (09:58)
[2018-07-10] MEDS: SILVER SULFADIAZINE 1 % TOPICAL CREAM 50GM TOP SCH ×2 (09:58→22:31)
[2018-07-10] MEDS: SODIUM CHLOR 0.9% PF (SALINE LOCK) 10ML VIAL/SYR IV SCH ×2 (09:58→22:31)
[2018-07-10] MEDS: DAKINS QUARTER STR 0.125% (NaHypochlorite) 473 ML TOPICAL SOL TOP SCH ×2 (09:58→09:59)
[2018-07-10] MEDS ORDERED: HALOPERIDOL LACTATE 5 MG/ML INJ VIAL ONE (10:55)
[2018-07-10] MEDS ORDERED: HALOPERIDOL LACTATE 5 MG/ML INJ VIAL IV PRN (11:00)
[2018-07-10 12:00] VITALS: BP 150/89
[2018-07-10 16:00] VITALS: BP 121/65
[2018-07-10 20:00] VITALS: BP 143/78
[2018-07-10] MEDS ORDERED: KETOROLAC TROMETH 30 MG/ML 1ML VIAL IV ONE (22:15)
[2018-07-10] MEDS: TEMAZEPAM 15 MG CAP PO PRN (22:30)
[2018-07-10] MEDS: NYSTATIN TOPICAL CREAM 15GM TOP SCH (22:31)
[2018-07-11] VITALS: BP 141/74
[2018-07-11] MEDS: ACCU-CHEK COMFORT CURVE STRIP VI SCH ×2 (00:11→05:34)
[2018-07-11] MEDS: InsuLIN REG 1unit/0.01ml Soln (100units/ml) SC SCH ×2 (00:12→06:40)
[2018-07-11 04:00] VITALS: BP 112/65
[2018-07-11] MEDS: CLINDAMYCIN 900MG IV 50 ML IV SCH (05:33)
[2018-07-11] MEDS: FUROSEMIDE 40 MG/4 ML VIAL IV SCH (05:34)
[2018-07-11] MEDS: IPRATROPIUM BROM 0.5 MG/2.5ML INH SOL NEB SCH ×3 (05:43→18:09)
[2018-07-11] MEDS: ALBUTEROL SULF 2.5 MG/0.5ML(0.5%) NEB SOLN NEB SCH ×3 (05:43→18:09)
[2018-07-11] MEDS: INSULIN LANTUS (GLARGINE) 1 /0.01ml (100units/ml) SC SCH (06:41)
[2018-07-11 08:00] VITALS: BP 132/93
[2018-07-11] MEDS: cefTRIAXone 1GM/50ML D5W 50 ML IV SCH (09:22)
[2018-07-11] MEDS: FLUCONAZOLE 200MG/100ML 100 ML IV SCH (09:59)
[2018-07-11] MEDS: SODIUM CHLOR 0.9% PF (SALINE LOCK) 10ML VIAL/SYR IV SCH (10:00)
[2018-07-11] MEDS: DAKINS QUARTER STR 0.125% (NaHypochlorite) 473 ML TOPICAL SOL TOP SCH ×2 (10:00)
[2018-07-11] MEDS: NYSTATIN TOPICAL CREAM 15GM TOP SCH (10:00)
[2018-07-11] MEDS: METOPROLOL TARTRATE 25 MG TAB PO SCH (10:57)
[2018-07-11] MEDS: GABAPENTIN 300 MG CAP PO SCH (10:57)
[2018-07-11] MEDS: PANTOPRAZOLE 40 MG TAB PO SCH (10:57)
[2018-07-11] MEDS: POTASSIUM CHL 10 Meq TABLET PO SCH (10:57)
[2018-07-11] MEDS: amLODIPine BESYLATE 5 MG TAB PO SCH (10:58)
[2018-07-11] MEDS: LISINOPRIL 20 MG TAB PO SCH (11:00)
[2018-07-11] MEDS: SILVER SULFADIAZINE 1 % TOPICAL CREAM 50GM TOP SCH (11:00)
[2018-07-11 12:00] VITALS: BP 169/95
[2018-07-11] MEDS ORDERED: LACOSAMIDE 100 MG in SODIUM CHL 0.9% 50 ML IV SCH ×3 (13:43→22:00)
[2018-07-11] MEDS ORDERED: CLINDAMYCIN 900MG IV 50 ML IV SCH (14:00)
[2018-07-11] MEDS ORDERED: LACOSAMIDE 200 mg/20ml VIAL IV SCH (15:00)
[2018-07-11 15:51] VITALS: BP 156/84
[2018-07-11 19:58] VITALS: BP 182/79
[2018-07-11] MEDS ORDERED: VIMPAT 100 MG IV SCH (22:00)
[2018-07-11] MEDS ORDERED: LACOSAMIDE 200 MG in SODIUM CHL 0.9% 100 ML IV SCH (22:00)
[2018-07-11] MEDS ORDERED: LACOSAMIDE 50 MG in SODIUM CHL 0.9% 50 ML IV SCH (22:00)
[2018-07-12] MEDS ORDERED: FUROSEMIDE 40 MG/4 ML VIAL IV SCH (10:00)
[2018-07-12] MEDS ORDERED: POTASSIUM CHL 10 Meq TABLET PO SCH (10:00)
== END 2018-07-11 21:37 | disposition left against medical advice (07) | DRG 720 ==
LOC: ER 08:35 → TELE 08:36 → TELE-CENTR 16:23 → ICU WEST 06-30 01:44 → DOU IN ICU 07-09 12:09
PROVIDERS: ADMIT Internal Medicine; ATTEND Internal Medicine
PROC: 5A09357 Assistance with Respiratory Ventilation, Less than 24 Consecutive Hours, Continuous Positive Airway Pressure (ICD-10-PCS; 2018-06-29)
PROC: 5A1955Z Respiratory Ventilation, Greater than 96 Consecutive Hours (ICD-10-PCS; principal; 2018-06-30)
PROC: 0BH17EZ Insertion of Endotracheal Airway into Trachea, Via Natural or Artificial Opening (ICD-10-PCS; 2018-06-30)
PROC: 02H633Z Insertion of Infusion Device into Right Atrium, Percutaneous Approach (ICD-10-PCS; 2018-07-02)
PROC: 0BB28ZX Excision of Carina, Via Natural or Artificial Opening Endoscopic, Diagnostic (ICD-10-PCS; 2018-07-06)
PROC: 0B968ZZ Drainage of Right Lower Lobe Bronchus, Via Natural or Artificial Opening Endoscopic (ICD-10-PCS; 2018-07-06)
DX: A41.9 Sepsis, unspecified organism (principal); J96.01 Acute respiratory failure with hypoxia; E43 Unspecified severe protein-calorie malnutrition; R40.20 Unspecified coma; R65.21 Severe sepsis with septic shock; G93.1 Anoxic brain damage, not elsewhere classified; J15.6 Pneumonia due to other Gram-negative bacteria; G93.41 Metabolic encephalopathy; I50.33 Acute on chronic diastolic (congestive) heart failure; E11.21 Type 2 diabetes mellitus with diabetic nephropathy; E11.40 Type 2 diabetes mellitus with diabetic neuropathy, unspecified; E11.621 Type 2 diabetes mellitus with foot ulcer; L97.509 Non-pressure chronic ulcer of other part of unspecified foot with unspecified severity; L03.031 Cellulitis of right toe; E11.69 Type 2 diabetes mellitus with other specified complication; E11.42 Type 2 diabetes mellitus with diabetic polyneuropathy; I11.0 Hypertensive heart disease with heart failure; R31.0 Gross hematuria; G40.409 Other generalized epilepsy and epileptic syndromes, not intractable, without status epilepticus; E11.52 Type 2 diabetes mellitus with diabetic peripheral angiopathy with gangrene; E11.65 Type 2 diabetes mellitus with hyperglycemia; E66.9 Obesity, unspecified; F12.90 Cannabis use, unspecified, uncomplicated; F17.210 Nicotine dependence, cigarettes, uncomplicated; I07.1 Rheumatic tricuspid insufficiency; J44.0 Chronic obstructive pulmonary disease with (acute) lower respiratory infection; J98.11 Atelectasis; K76.0 Fatty (change of) liver, not elsewhere classified; L97.519 Non-pressure chronic ulcer of other part of right foot with unspecified severity; R79.1 Abnormal coagulation profile; M77.30 Calcaneal spur, unspecified foot; Z83.3 Family history of diabetes mellitus; Z82.0 Family history of epilepsy and other diseases of the nervous system; Z79.899 Other long term (current) drug therapy; M86.8X7 Other osteomyelitis, ankle and foot; Z53.21 Procedure and treatment not carried out due to patient leaving prior to being seen by health care provider; Z68.37 Body mass index [BMI] 37.0-37.9, adult; Z88.6 Allergy status to analgesic agent; Z88.0 Allergy status to penicillin; Z88.8 Allergy status to other drugs, medicaments and biological substances
CPT/HCPCS: 10022; 31622; 31625; 36415; 36569; 36600; 70450; 71045; 71046; 71275; 73620; 73630; 74177; 76604; 76942; 80048; 80053; 80061; 80202; 80307; 81001; 82378; 82550; 82607; 82728; 82746; 82805; 82962; 83036; 83540; 83550; 83605; 83735; 83880; 84154; 84443; 84484; 85025; 85379; 85610; 85652; 85730; 86141; 86301; 87040; 87070; 87077; 87081; 87086; 87186; 87205; 92610; 93005; 93306; 93926; 93970; 94002; 94003; 94640; 94660; 95819; 96365; 96375; 97110; 97163; 97530; A4565; A6257; C9254; J0171; J0696; J1450; J1815; J1885; J2001; J2250; J2405; J2704; J3490; J7060

== ENCOUNTER 2018-09-11 14:33 | Inpatient (IN) | payer OTHER ==
[~2018-09-11] VITALS: Ht 172.7 cm; Wt 127.6 kg
[~2018-09-11 14:33] MED LIST: AML5T PO; GABA300C10 PO; INSU1INJ19 SC; INSUINJ18 SC; LISI-646 PO; METF-372 PO
[2018-09-11] MEDS ORDERED: LEVOFLOXACIN 750MG 150 ML IV ONE (15:00)
[2018-09-11] MEDS ORDERED: IPRATROPIUM BROM 0.5 MG/2.5ML INH SOL NEB ONE (15:30)
[2018-09-11] MEDS ORDERED: FUROSEMIDE 20 MG/2 ML VIAL IV ONE (15:30)
[2018-09-11] MEDS ORDERED: ALBUTEROL SULF 2.5 MG/0.5ML(0.5%) NEB SOLN NEB ONE (15:30)
[2018-09-11 15:44] LABS: Basophils # (auto) 0.1 uL; Eosinophils # (auto) 0 uL; Hemoglobin 12.3 g/dL (13.5-17.5); Mean Corpuscular Hemoglobin 26.1 pg (28.0-32.0); Red Blood Cells 4.72 10^6/uL (4.5-5.90); Red Cell Distribution Width 15.6 % (11.8-14.3); White Blood Cell 21.8 10^3/uL (4.4-10.8)
[2018-09-11 15:45] LABS: Basophils % (auto) 0.4 % (0.0-2.0); Hematocrit 39.5 % (41.0-53.0); Lymphocytes # (auto) 0.8 uL; Lymphocytes % (auto) 3.9 % (10.0-50.0); Mean Corpuscular Hgb Conc. 31.2 g/dL (32.0-36.0); Mean Corpuscular Volume 83.7 fL (80.0-100.0); Monocytes # (auto) 1.3 uL; Monocytes % (auto) 5.8 % (0.0-12.0); Neutrophils # (auto) 19.6 uL; Neutrophils % (auto) 89.9 % (37.0-80.0); Nucleated Red Blood Cells % 0.1 %; Platelet Count (auto) 408 10^3/uL (140-450)
[2018-09-11 15:53] LABS: Albumin 2.6 g/dL (3.4-5.0); Calcium 8.2 mg/dL (8.5-10.1); Magnesium 2.4 mg/dL (1.6-2.6); Potassium 4.5 mmol/L (3.5-5.1)
[2018-09-11 15:59] LABS: BUN/Creatinine Ratio 21.4; Bilirubin, Total 0.7 mg/dL (0.2-1.0); Total Protein 7.8 g/dL (6.4-8.2)
[2018-09-11] MEDS ORDERED: TEMAZEPAM 15 MG CAP PO PRN (16:45)
[2018-09-11] MEDS ORDERED: DEXTROSE (50%) 50ML SYRG IV PRN (16:45)
[2018-09-11] MEDS ORDERED: LEVOFLOXACIN 500MG 100 ML IV ONE (16:45)
[2018-09-11] MEDS ORDERED: NITROGLYCERIN 0.4 MG SL TAB SL PRN (16:45)
[2018-09-11] MEDS ORDERED: PROMETHAZINE HCL 25 MG/ML 1ML IV PRN (16:45)
[2018-09-11] MEDS ORDERED: ALBUTEROL SULF 2.5 MG/0.5ML(0.5%) NEB SOLN NEB PRN (16:45)
[2018-09-11] MEDS ORDERED: MORPHINE SULFATE 4 MG/ML SYR/VIAL IV PRN ×3 (16:45)
[2018-09-11] MEDS ORDERED: LACTULOSE 20Gm/30ML SOLN PO PRN (16:45)
[2018-09-11] MEDS ORDERED: OSELTAMIVIR 75 MG CAP PO ONE (16:45)
[2018-09-11] MEDS: ACCU-CHEK COMFORT CURVE STRIP VI SCH ×2 (17:44→22:19)
[2018-09-11] MEDS ORDERED: InsuLIN REG 1unit/0.01ml Soln (100units/ml) ONE (17:47)
[2018-09-11] MEDS: InsuLIN REG 1unit/0.01ml Soln (100units/ml) SC SCH ×2 (17:50→22:00)
[2018-09-11] MEDS ORDERED: CLINDAMYCIN 600MG IV 50 ML IV SCH (18:00)
[2018-09-11] MEDS ORDERED: VANCOMYCIN PER PHARMACY 0 MG IV SCH (18:30)
[2018-09-11] MEDS ORDERED: ALBUTEROL SULF 2.5 MG/0.5ML(0.5%) NEB SOLN ONE (19:35)
[2018-09-11] MEDS ORDERED: IPRATROPIUM BROM 0.5 MG/2.5ML INH SOL ONE (19:35)
[2018-09-11] MEDS: ALBUTEROL SULF 2.5 MG/0.5ML(0.5%) NEB SOLN NEB SCH (19:39)
[2018-09-11] MEDS: IPRATROPIUM BROM 0.5 MG/2.5ML INH SOL NEB SCH (19:39)
[2018-09-11 19:48] VITALS: BP 146/81
[2018-09-11] MEDS ORDERED: VANCOMYCIN 1GM/250ML 250 ML IV ONE (20:15)
[2018-09-11] MEDS ORDERED: CARVEDILOL 3.125 MG TAB ONE (21:47)
[2018-09-11] MEDS ORDERED: TEMAZEPAM 15 MG CAP ONE (21:48)
[2018-09-11] MEDS: ENOXAPARIN SOD 40 MG/0.4 ML SYRINGE SC SCH (22:18)
[2018-09-11] MEDS: SODIUM CHLOR 0.9% PF (SALINE LOCK) 10ML VIAL/SYR IV SCH (22:18)
[2018-09-11] MEDS: CARVEDILOL 3.125 MG TAB PO SCH (22:18)
[2018-09-12] MEDS: ALBUTEROL SULF 2.5 MG/0.5ML(0.5%) NEB SOLN NEB SCH ×4 (00:10→19:32)
[2018-09-12] MEDS: IPRATROPIUM BROM 0.5 MG/2.5ML INH SOL NEB SCH ×4 (00:10→19:32)
[2018-09-12 02:00] VITALS: BP 144/98
[2018-09-12] MEDS ORDERED: LORazepam 0.5 MG TAB ONE (02:47)
[2018-09-12 04:00] VITALS: BP 116/87
[2018-09-12] MEDS: SODIUM CHLOR 0.9% PF (SALINE LOCK) 10ML VIAL/SYR IV SCH ×3 (04:35→22:00)
[2018-09-12] MEDS: VANCOMYCIN 1GM/250ML 250 ML IV SCH ×3 (04:35→14:08)
[2018-09-12] MEDS: ACCU-CHEK COMFORT CURVE STRIP VI SCH ×4 (05:25→22:20)
[2018-09-12 05:49] LABS: Basophils # (auto) 0.1 uL; Basophils % (auto) 0.6 % (0.0-2.0); Eosinophils # (auto) 0 uL; Eosinophils % (auto) 0.2 % (0.0-7.0); Hematocrit 34.6 % (41.0-53.0); Hemoglobin 10.9 g/dL (13.5-17.5); Mean Corpuscular Hgb Conc. 31.5 g/dL (32.0-36.0); Mean Corpuscular Volume 82.6 fL (80.0-100.0); Monocytes # (auto) 1.5 uL; Red Blood Cells 4.19 10^6/uL (4.5-5.90)
[2018-09-12 05:51] LABS: Lymphocytes # (auto) 1.1 uL; Lymphocytes % (auto) 5.5 % (10.0-50.0); Monocytes % (auto) 7.8 % (0.0-12.0); Neutrophils # (auto) 16.9 uL; Neutrophils % (auto) 85.9 % (37.0-80.0); Platelet Count (auto) 332 10^3/uL (140-450); Red Cell Distribution Width 15.1 % (11.8-14.3); White Blood Cell 19.6 10^3/uL (4.4-10.8)
[2018-09-12] MEDS ORDERED: OSELTAMIVIR 75 MG CAP PO SCH (06:00)
[2018-09-12 06:06] LABS: Albumin 2.1 g/dL (3.4-5.0); Potassium 4.6 mmol/L (3.5-5.1)
[2018-09-12] MEDS ORDERED: ALBUTEROL SULF 2.5 MG/0.5ML(0.5%) NEB SOLN ONE (06:06)
[2018-09-12] MEDS ORDERED: IPRATROPIUM BROM 0.5 MG/2.5ML INH SOL ONE (06:06)
[2018-09-12] MEDS: InsuLIN REG 1unit/0.01ml Soln (100units/ml) SC SCH ×4 (06:08→22:40)
[2018-09-12 06:12] LABS: BUN/Creatinine Ratio 28.1; Bilirubin, Total 0.7 mg/dL (0.2-1.0); Calcium 7.8 mg/dL (8.5-10.1); Total Protein 6.7 g/dL (6.4-8.2)
[2018-09-12 08:00] VITALS: BP 135/87
[2018-09-12] MEDS: amLODIPine BESYLATE 5 MG TAB PO SCH (10:27)
[2018-09-12] MEDS: ASPirin 81 mg TAB PO SCH (10:27)
[2018-09-12] MEDS: PANTOPRAZOLE 40 MG TAB PO SCH (10:27)
[2018-09-12] MEDS: ENOXAPARIN SOD 40 MG/0.4 ML SYRINGE SC SCH ×2 (10:28→22:19)
[2018-09-12] MEDS: GABAPENTIN 300 MG CAP PO SCH (10:28)
[2018-09-12] MEDS: LISINOPRIL 20 MG TAB PO SCH (10:28)
[2018-09-12 12:00] VITALS: BP 128/87
[2018-09-12] MEDS: LEVOFLOXACIN 500MG 100 ML IV SCH (12:12)
[2018-09-12] MEDS: CARVEDILOL 3.125 MG TAB PO SCH ×2 (12:12→22:20)
[2018-09-12] MEDS ORDERED: FUROSEMIDE 20 MG/2 ML VIAL IV ONE (15:45)
[2018-09-12 16:00] VITALS: BP 106/43
[2018-09-12] MEDS: LORazepam 0.5 MG TAB PO PRN (18:18)
[2018-09-12 20:45] VITALS: BP 138/62
[2018-09-12] MEDS ORDERED: INSULIN LANTUS (GLARGINE) 1 /0.01ml (100units/ml) SC SCH (22:00)
[2018-09-12] MEDS: VANCOMYCIN 1,250 MG in D5W 5% 250 ML IV SCH (22:19)
[2018-09-13] MEDS: ALBUTEROL SULF 2.5 MG/0.5ML(0.5%) NEB SOLN NEB SCH ×3 (01:31→12:24)
[2018-09-13] MEDS: IPRATROPIUM BROM 0.5 MG/2.5ML INH SOL NEB SCH ×3 (01:31→12:25)
[2018-09-13] MEDS: LORazepam 0.5 MG TAB PO PRN (02:07)
[2018-09-13] MEDS ORDERED: LORazepam 2MG/ML-1ML VIAL IV ONE (02:45)
[2018-09-13] MEDS ORDERED: methylPREDNISolone SOD SUCC 125 MG/2 ML VL IV ONE (02:45)
[2018-09-13 02:52] LABS: Alcohol, Urine < 3.0 mg/dL (0-5); Amphetamine Screen, Urine POSITIVE (NEGATIVE); Barbiturate Scree,Urine NEGATIVE (NEGATIVE); Benzodiazephine Screen, Urine NEGATIVE (NEGATIVE); Cannabinoid Screen, Urine NEGATIVE (NEGATIVE); Cocaine Screen, Urine NEGATIVE (NEGATIVE); Opiate Scree,Urine NEGATIVE (NEGATIVE); Phencyclidine Screen, Urine NEGATIVE (NEGATIVE)
[2018-09-13 02:55] LABS: Urine Bacteria NONE SEEN /hpf (None Seen); Urine Blood Negative /uL (Negative); Urine Mucus FEW (None Seen); Urine Specific Gravity 1.019 (1.001-1.035); Urine WBC 1 /hpf (0 - 3)
[2018-09-13] MEDS ORDERED: FLUMAZENIL 0.1 MG/ML INJ 10ML MDV IV ONE (04:30)
[2018-09-13 05:00] VITALS: BP 126/77
[2018-09-13] MEDS: SODIUM CHLOR 0.9% PF (SALINE LOCK) 10ML VIAL/SYR IV SCH (06:07)
[2018-09-13] MEDS: ACCU-CHEK COMFORT CURVE STRIP VI SCH ×2 (06:07→11:30)
[2018-09-13] MEDS: InsuLIN REG 1unit/0.01ml Soln (100units/ml) SC SCH ×2 (06:07→12:29)
[2018-09-13 06:48] LABS: Basophils # (auto) 0 uL; Monocytes # (auto) 0.6 uL; Red Blood Cells 4.19 10^6/uL (4.5-5.90)
[2018-09-13 06:51] LABS: Basophils % (auto) 0.1 % (0.0-2.0); Eosinophils # (auto) 0.1 uL; Eosinophils % (auto) 0.3 % (0.0-7.0); Hematocrit 35.1 % (41.0-53.0); Hemoglobin 11.2 g/dL (13.5-17.5); Lymphocytes # (auto) 0.5 uL; Lymphocytes % (auto) 2.3 % (10.0-50.0); Mean Corpuscular Hemoglobin 26.8 pg (28.0-32.0); Mean Corpuscular Volume 83.8 fL (80.0-100.0); Monocytes % (auto) 3.1 % (0.0-12.0); Neutrophils # (auto) 18.8 uL; Neutrophils % (auto) 94.2 % (37.0-80.0); Platelet Count (auto) 366 10^3/uL (140-450); Red Cell Distribution Width 15.5 % (11.8-14.3); White Blood Cell 19.9 10^3/uL (4.4-10.8)
[2018-09-13 06:59] LABS: BUN/Creatinine Ratio 37.1; Calcium 7.8 mg/dL (8.5-10.1); Potassium 4.4 mmol/L (3.5-5.1)
[2018-09-13 09:00] VITALS: BP 127/79
[2018-09-13] MEDS ORDERED: FUROSEMIDE 20 MG/2 ML VIAL IV SCH ×2 (10:00→18:00)
[2018-09-13] MEDS: LEVOFLOXACIN 500MG 100 ML IV SCH (10:41)
[2018-09-13] MEDS: ENOXAPARIN SOD 40 MG/0.4 ML SYRINGE SC SCH (10:41)
[2018-09-13] MEDS: ASPirin 81 mg TAB PO SCH (10:44)
[2018-09-13] MEDS: PANTOPRAZOLE 40 MG TAB PO SCH (10:44)
[2018-09-13] MEDS: amLODIPine BESYLATE 5 MG TAB PO SCH (10:45)
[2018-09-13] MEDS: GABAPENTIN 300 MG CAP PO SCH (10:45)
[2018-09-13] MEDS: CARVEDILOL 3.125 MG TAB PO SCH (10:45)
[2018-09-13] MEDS: LISINOPRIL 20 MG TAB PO SCH (10:45)
[2018-09-13 12:58] VITALS: BP 146/85
[2018-09-13] MEDS: VANCOMYCIN 1,250 MG in D5W 5% 250 ML IV SCH (13:02)
[2018-09-13] MEDS ORDERED: methylPREDNISolone SOD SUCC 40 MG/ML VL IV ONE (14:45)
[2018-09-13] MEDS ORDERED: FUROSEMIDE 20 MG/2 ML VIAL IV ONE (14:45)
[2018-09-13] MEDS ORDERED: LEVOFLOXACIN 250MG 50 ML IV ONE (15:00)
[2018-09-13 16:54] VITALS: BP 125/73
[2018-09-14] MEDS ORDERED: methylPREDNISolone SOD SUCC 40 MG/ML VL IV SCH (06:00)
[2018-09-14] MEDS ORDERED: LEVOFLOXACIN 750MG 150 ML IV SCH (10:00)
== END 2018-09-13 17:05 | disposition left against medical advice (07) | DRG 720 ==
LOC: ER 14:33 → OVERFLOW 16:44 → UNDOADMIN 16:44 → DOU IN ICU 23:49 → TELE-WESTW 09-12 17:15
PROVIDERS: ADMIT Internal Medicine; ATTEND Internal Medicine
PROC: 5A09357 Assistance with Respiratory Ventilation, Less than 24 Consecutive Hours, Continuous Positive Airway Pressure (ICD-10-PCS; principal; 2018-09-13)
DX: A41.9 Sepsis, unspecified organism (principal); J96.00 Acute respiratory failure, unspecified whether with hypoxia or hypercapnia; I50.43 Acute on chronic combined systolic (congestive) and diastolic (congestive) heart failure; E44.0 Moderate protein-calorie malnutrition; J18.9 Pneumonia, unspecified organism; E11.51 Type 2 diabetes mellitus with diabetic peripheral angiopathy without gangrene; E11.21 Type 2 diabetes mellitus with diabetic nephropathy; I13.0 Hypertensive heart and chronic kidney disease with heart failure and stage 1 through stage 4 chronic kidney disease, or unspecified chronic kidney disease; E11.621 Type 2 diabetes mellitus with foot ulcer; E11.65 Type 2 diabetes mellitus with hyperglycemia; E66.01 Morbid (severe) obesity due to excess calories; D63.8 Anemia in other chronic diseases classified elsewhere; J44.9 Chronic obstructive pulmonary disease, unspecified; D72.829 Elevated white blood cell count, unspecified; J44.1 Chronic obstructive pulmonary disease with (acute) exacerbation; L97.529 Non-pressure chronic ulcer of other part of left foot with unspecified severity; E11.22 Type 2 diabetes mellitus with diabetic chronic kidney disease; J44.0 Chronic obstructive pulmonary disease with (acute) lower respiratory infection; N18.2 Chronic kidney disease, stage 2 (mild); F12.90 Cannabis use, unspecified, uncomplicated; F15.90 Other stimulant use, unspecified, uncomplicated; Z53.21 Procedure and treatment not carried out due to patient leaving prior to being seen by health care provider; R56.9 Unspecified convulsions; Z68.41 Body mass index [BMI] 40.0-44.9, adult; Z87.891 Personal history of nicotine dependence; Z85.118 Personal history of other malignant neoplasm of bronchus and lung; Z87.898 Personal history of other specified conditions; Z71.6 Tobacco abuse counseling; Z88.1 Allergy status to other antibiotic agents; Z88.5 Allergy status to narcotic agent; Z88.0 Allergy status to penicillin; Z88.8 Allergy status to other drugs, medicaments and biological substances
CPT/HCPCS: 36415; 36600; 71045; 80048; 80053; 80061; 80202; 80307; 81001; 82550; 82805; 82962; 83036; 83735; 83880; 84443; 84484; 85025; 87040; 87081; 87804; 93005; 93970; 94640; 94660; 94761; 96365; 96372; 96375; G0378; J1815; J1956; J7060

== ENCOUNTER 2018-09-26 02:05 | Emergency (ER) | payer OTHER ==
[~2018-09-26] VITALS: Ht 180.3 cm; Wt 136.1 kg
[2018-09-26] MEDS ORDERED: SODIUM BICARBONATE 8.4% INJ 50ML SYRINGE IV ONE (02:06)
[2018-09-26] MEDS ORDERED: EPINEPHrine HCL 1 MG/10 ML SYRG IV ONE (02:06)
[2018-09-26 02:10] VITALS: BP 0/0
== END 2018-09-26 02:15 | disposition expired ==
LOC: EDBD 02:05 → ER 02:05
DX: I46.9 Cardiac arrest, cause unspecified (principal); E66.01 Morbid (severe) obesity due to excess calories; J44.9 Chronic obstructive pulmonary disease, unspecified; E11.9 Type 2 diabetes mellitus without complications; I11.0 Hypertensive heart disease with heart failure; I50.9 Heart failure, unspecified; Z88.6 Allergy status to analgesic agent; Z88.0 Allergy status to penicillin; Z88.8 Allergy status to other drugs, medicaments and biological substances; Z79.4 Long term (current) use of insulin; Z79.899 Other long term (current) drug therapy; Z68.41 Body mass index [BMI] 40.0-44.9, adult
CPT/HCPCS: 31500; 92950; 99291; J0171